=== PATIENT | female | born 1955 | race African-American/Black ===

== ENCOUNTER 2016-08-24 17:42 | Emergency (ER) | payer MEDICARE ==
[2016-08-24 18:02] LABS: #Lymphocytes 1.5 thou/uL (1.20-3.40); #Monocytes 0.6 thou/uL (0.11-0.59); #Neutrophils 14.7 thou/uL (1.40-6.50); %Basophils 0.2 % (0.0-1.0); %Eosinophils 0.1 % (0.0-10.0); %Lymphocytes 9.1 % (21.0-51.0); %Monocytes 3.5 % (0.0-10.0); %Neutrophils 87.1 % (42.0-75.0); Hemoglobin 16.1 g/dL (12.0-16.0); Mean Corpuscular HGB CONC 31.5 g/dL (32.0-36.0); Mean Corpuscular Volume 98.5 fl (81.0-99.0); Mean Platelet Volume 9.8 fL (7.4-10.4); Platelet Count 149 thou/uL (130-400); RBC Distribution Width 13.2 % (11.5-14.5); Red Blood Cell (RBC) Count 5.21 mill/uL (4.20-5.40); White Blood Cell (WBC) Count 16.8 thou/uL (4.8-10.8)
[2016-08-24 18:14] LABS: Bilirubin Negative (Negative); Blood, Urine Negative (Negative); Clarity Clear (Clear); Glucose, Urine (Dipstick) 500 mg/dL (Negative); Leukocyte Negative (Negative); Nitrite Negative (Negative); Protein, Urine (Dipstick) Negative (Neg-Trace); Urobilinogen 0.2 mg/dL (0.2-1.0)
[2016-08-24 18:15] LABS: Specific Gravity, Urine 1.005 (1.005-1.030)
[2016-08-24 18:19] LABS: CKMB 1.9 ng/mL (0-6.6); Troponin I 0.013 ng/mL (< 0.028)
[2016-08-24 18:27] LABS: ALT (SGPT) 26 U/L (8-55); AST (SGOT) 13 U/L (5-34); Albumin 3.6 g/dL (3.4-4.8); Alkaline Phosphatase 116 U/L (40-150); Anion Gap 25 mmol/L (10-20); BUN (Urea Nitrogen) 50 mg/dL (9.8-20.1); Bilirubin, Total 0.3 mg/dL (0.2-1.2); Calc. Creatinine Clearance 0 mL/min (70-130); Calcium 9.9 mg/dL (7.8-10.44); Carbon Dioxide 20 mmol/L (23-31); Chloride 131 mmol/L (98-107); Estimated GFR-MDRD 36; Globulin 3.9 g/dL (2.4-3.5); Glucose 745 mg/dL (80-115); Potassium 4.7 mmol/L (3.5-5.1); Protein, Total 7.5 g/dL (6.0-8.3); Sodium 171 mmol/L (136-145)
[2016-08-24] MEDS ORDERED: Insulin Regular 300 UNITS/3 ML VIAL ONE (18:44)
[2016-08-24 18:45] LABS: INR-International Normal Ratio 1.2; Prothrombin Time 15.1 SEC (12.0-14.7)
[2016-08-24 18:48] LABS: Base Excess -3.2 mEq/L (-2 - +2); Hemoglobin (Hb) 14.3 g/dL (11.7-16.0); pH (venous) 7.38 (7.34-7.37)
[2016-08-24 18:49] LABS: PTT 20.5 SEC (22.9-36.1)
[2016-08-24 19:07] LABS: Anion Gap 23 mmol/L (10-20); BUN (Urea Nitrogen) 45 mg/dL (9.8-20.1); Calc. Creatinine Clearance 0 mL/min (70-130); Calcium 9.2 mg/dL (7.8-10.44); Carbon Dioxide 17 mmol/L (23-31); Chloride 135 mmol/L (98-107); Estimated GFR-MDRD 41; Glucose 733 mg/dL (80-115); Potassium 4.1 mmol/L (3.5-5.1); Sodium 171 mmol/L (136-145)
--- NOTE | 2016-08-24 20:20 | CT ---
CT BRAIN WITHOUT CONTRAST: Date: 08-24-16 Comparison: 10-19-14 FINDINGS: Diffuse atrophy is present which is worsened over the interval. There is mild compensatory dilatatio n of the ventricles that is appropriate for the increased degree of atrophy present. No intracranial bleeding, mass, or sign of stroke was found. No edema was seen. The calvarium was unremarkable. IMPRESSION: Diffuse atrophy which has worsened since 2014. No acute intracranial findings. POS: HOME
--- NOTE | 2016-08-24 20:22 | RAD ---
PORTABLE CHEST: Date: 08-24-16 An AP portable film at 181 is compared with an 09-28-08 study. FINDINGS: The heart remains normal in size. There is no vascular congestion, edema, or pleural effusion. There is a patchy opacity just below the left hilum and to the left of the left heart border. I would pre sume that this is an infiltrate, however, it must be followed to complete resolution to be sure it i s not a mass. If it does not resolve with treatment, then a CT should be done to investigate it furt her and make sure it is not a mass. The lungs are otherwise clear. There are no effusions. The cardi ac size is no different than before. IMPRESSION: Patchy opacity in the left lung adjacent to the heart. Further follow up required. Code T POS: HOME
== END 2016-08-24 19:19 | disposition short-term general hospital (02) ==
LOC: BURERS 17:42
DX: G93.40 Encephalopathy, unspecified (principal); E87.0 Hyperosmolality and hypernatremia; E11.65 Type 2 diabetes mellitus with hyperglycemia; Z79.4 Long term (current) use of insulin; Z79.899 Other long term (current) drug therapy
CPT/HCPCS: 36415; 51702; 70450; 71010; 80053; 81003; 82553; 82805; 84484; 85025; 85610; 85730; 87040; 87077; 87086; 87149; 87186; 93005; 96361; 96374; J1815